=== PATIENT | male | born 1970 | race Caucasian/White ===

== ENCOUNTER 2017-06-04 10:38 | Day surgery (SDC) | payer BC ==
[~2017-06-04 10:38] MED LIST: Lactated Ringers 1,000 ML IV SCH; Sodium Chloride 0.9% 10 ML Syringe FLUSH PRN
[2017-06-04] MEDS ORDERED: fentaNYL 100 MCG/2 ML SDV ONE ×2 (12:43→14:07)
[2017-06-04] MEDS ORDERED: Midazolam 1 MG/ML 2 ML SDV ONE ×2 (12:43→14:07)
[2017-06-04] MEDS ORDERED: Propofol 200 MG/20 ML SDV ONE ×3 (12:44→14:07)
--- NOTE | 2017-06-04 12:44 | PCM.PN ---
- General Info Date of Service: 06/04/17 - Review of Systems Systems Review Comment:: 47-year-old male here for hemorrhoidectomy. He is medically stable to proceed today with no significant change in his recent health status. He is recent history and physical is reviewed today and no changes are noted since that time. I have discussed the proposed hemorrhoidectomy with the patient I reviewed indications options and risks and he agrees to proceed. Expectations and postop instructions are again reviewed. - Patient Data Vitals - Most Recent: Last Vital Signs Temp 97.1 F 06/04/17 11:06 Pulse 70 06/04/17 11:06 Resp 20 06/04/17 11:06 BP 119/80 06/04/17 11:06 Pulse Ox 100 06/04/17 11:06 Weight - Most Recent: 70.307 kg Med Orders - Current: Current Medications Lactated Ringer's (Ringers, Lactated) 1,000 mls @ 125 mls/hr IV ASDIRECTED [facility] Last Admin: 06/04/17 11:30 Dose: 125 mls/hr Sodium Chloride (Saline Flush) 10 ml FLUSH ASDIRECTED PRN PRN Reason: Keep Vein Open - Problem List Review Problem List Initiated/Reviewed/Updated: Yes - Assessment Assessment:: Symptomatic Hemorrhoids - Plan Plan:: Hemorrhoidectomy
[2017-06-04] MEDS ORDERED: Bupivacaine 0.25%/EPINEPHrine 1:200,000 30 ML SDV INFILT ONE (13:12)
[2017-06-04] MEDS ORDERED: ceFAZolin 1 GM Vial ONE (14:07)
--- NOTE | 2017-06-04 14:21 | PCM.OPNOTE ---
- General Post-Op/Procedure Note Date of Surgery/Procedure: 06/04/17 Operative Procedure(s): Hemorrhoidectomy with lateral internal anal sphincterotomy Findings: Multiple large hemorrhoids and small posterior midline anal fissure Pre Op Diagnosis: Hemorrhoids Post-Op Diagnosis: Hemorrhoids and Anal Fissure Anesthesia Technique: Local, MAC Primary Surgeon: Christian Corcoran Pathology: Hemorrhoids Output, Urine Amount: 0 EBL in mLs: 25 Drain/Tube Comments:: small adaptic rectal pack placed Complications: None Condition: Good
--- NOTE | 2017-06-05 08:06 | OR ---
Date of Procedure: 06/04/2017 PREOPERATIVE DIAGNOSIS: Symptomatic hemorrhoids. POSTOPERATIVE DIAGNOSIS: Symptomatic hemorrhoids and anal fissure. OPERATION PERFORMED: Hemorrhoidectomy and lateral internal anal sphincterotomy. INDICATIONS FOR SURGERY: This 47-year-old male has been having symptoms of some rectal bleeding as well as pain. He is noted on exam to have large hemorrhoids and comes for hemorrhoidectomy. FINDINGS: The patient has 2 large internal-external hemorrhoidal complexes. These were on the patient's right side at the 11 and 7 o'clock position. He also has a smaller hemorrhoid at the 4 o'clock position on the left side. The patient also has a small anal fissure in the posterior midline at the dentate line. PROCEDURE IN DETAIL: The patient was taken to the operating room. He was placed in the dorsal lithotomy position and the perirectal area is sterilely prepped with Betadine and draped. Gentle digital dilation of the rectal canal was performed and the operating anoscope was inserted. The above described hemorrhoids and the anal fissure are identified. These three hemorrhoids were each in turn excised. At each location, the hemorrhoid tissue was infiltrated with Xylocaine-Marcaine mix, and then a 2-0 or 3-0 Vicryl suture was placed on the hemorrhoidal vessel. The hemorrhoid was then excised preserving the underlying sphincter muscles and the mucosal defect was closed with a running Vicryl suture. The last hemorrhoid to be excised was the small hemorrhoid on the patient's left side. Because of the small anal fissure, a small amount of the external most fibers of the internal sphincter muscle are divided with cautery to better allow the fissure to heal. This was done before the mucosa is closed at this hemorrhoidectomy site. After all of the sites had been closed, examination showed no sign of any complicating process. A small Adaptic pack was placed. A sterile dressing was applied and the patient was then taken from the operating room in satisfactory condition. ESTIMATED BLOOD LOSS: 25 mL. COMPLICATIONS: None. PROGNOSIS: Good. VERONA Corcoran MD /[id number]
== END 2017-06-04 17:31 | disposition home or self-care (01) ==
LOC: LL.SDS 10:38
PROVIDERS: ATTEND Surgery
DX: K64.8 Other hemorrhoids (principal); K64.4 Residual hemorrhoidal skin tags; Z79.82 Long term (current) use of aspirin; Z88.1 Allergy status to other antibiotic agents
CPT/HCPCS: 46260; 99211; J7120; J0690; J2250; J2704; J3010

== ENCOUNTER 2021-06-15 09:16 | Day surgery (SDC) | payer BC ==
[~2021-06-15 09:16] MED LIST changes: -Lactated Ringers 1,000 ML IV SCH; +Propofol 200 MG/20 ML SDV ONE; -Sodium Chloride 0.9% 10 ML Syringe FLUSH PRN
[2021-06-15] MEDS ORDERED: Sodium Chloride 0.9% 10 ML Syringe FLUSH PRN (09:30)
[2021-06-15] MEDS ORDERED: Lactated Ringers 1,000 ML IV SCH (09:30)
--- NOTE | 2021-06-15 10:16 | PCM.HPR ---
H & P Addendum review - H & P Addendum Review Date of Original H & P: 06/12/21 Date Reviewed: 06/15/21 Time Reviewed: 10:15 Patient was Examined: No Changes
[2021-06-15] MEDS ORDERED: Propofol 200 MG/20 ML SDV ONE (10:21)
--- NOTE | 2021-06-15 10:43 | PCM.OPNOTE ---
- General Post-Op/Procedure Note Date of Surgery/Procedure: 06/15/21 Operative Procedure(s): Colonoscopy Findings: Normal Pre Op Diagnosis: Screening Post-Op Diagnosis: Same Anesthesia Technique: MAC Primary Surgeon: Rodolfo Vasquez Complications: None Condition: Good
--- NOTE | 2021-06-15 11:47 | OR ---
Date of Procedure: 06/15/2021 PREOPERATIVE DIAGNOSIS: Colon screening. POSTOPERATIVE DIAGNOSIS: Normal colonoscopy. PROCEDURE: Colonoscopy. ANESTHESIA: IV sedation. PROCEDURE IN DETAIL: Patient was brought to the procedure room where he was placed on his left side and IV sedation administered. Digital rectal exam was performed, which was normal. Colonoscope was inserted and advanced to the level of the cecum without difficulty. Cecal position was confirmed by identifying the appendiceal lumen and ileocecal valve. Prep was good and surfaces were well visualized. Upon withdrawing the scope, the ascending, transverse, and descending colon were normal in appearance. Sigmoid colon and rectum were normal. Retroflexion was normal. Air was removed and the scope withdrawn. The patient tolerated the procedure well and returned to recovery in stable condition. Recommend routine colon screening again in 10 years. VERONA LINTON MD /[id number]
== END 2021-06-15 11:50 | disposition home or self-care (01) ==
LOC: LL.SDS 09:16
PROVIDERS: ATTEND Surgery
DX: Z12.11 Encounter for screening for malignant neoplasm of colon (principal); Z88.0 Allergy status to penicillin; Z98.890 Other specified postprocedural states
CPT/HCPCS: 00812; J2704; J7120